=== PATIENT | female | born 1995 | race Caucasian/White ===

== ENCOUNTER 2018-11-03 14:24 | Emergency (ER) | payer MEDICAID ==
[~2018-11-03] VITALS: Ht 165.1 cm; Wt 73.0 kg
[2018-11-03 14:28] VITALS: Ht 165.1 cm; Wt 73.0 kg
[2018-11-03 17:12] VITALS: BP 126/96
== END 2018-11-03 17:12 | disposition home or self-care (01) ==
LOC: ED 14:24
DX: M25.511 Pain in right shoulder (principal); X50.0XXA Overexertion from strenuous movement or load, initial encounter; Y93.89 Activity, other specified; Y92.89 Other specified places as the place of occurrence of the external cause; Y99.8 Other external cause status
CPT/HCPCS: J1885; J2270